=== PATIENT | female | born 2000 | race African-American/Black ===

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

== ENCOUNTER 2021-02-17 20:01 | Emergency (ER) | payer MEDICAID ==
[~2021-02-17] VITALS: Ht 175.3 cm; Wt 88.5 kg
[2021-02-17 22:00] VITALS: BP 122/51
[2021-02-17] MEDS ORDERED: KETOROLAC TROMETH 60MG/2ML VIAL IM ONE (22:45)
[2021-02-17] MEDS ORDERED: cefTRIAXone SOD 1,000 MG VL IM ONE (23:45)
== END 2021-02-18 00:43 | disposition home or self-care (01) ==
LOC: ER 20:01
DX: S91.209A Unspecified open wound of unspecified toe(s) with damage to nail, initial encounter (principal); S92.415A Nondisplaced fracture of proximal phalanx of left great toe, initial encounter for closed fracture; X58.XXXA Exposure to other specified factors, initial encounter; Y93.89 Activity, other specified; Y92.89 Other specified places as the place of occurrence of the external cause; Y99.8 Other external cause status
CPT/HCPCS: 11730; 73630; 81025; 96372; 99284; J0696; J1885

== ENCOUNTER 2021-12-30 10:05 | Observation (INO) | payer MEDICAID, OTHER ==
[~2021-12-30] VITALS: Ht 177.8 cm; Wt 72.6 kg
[2021-12-30 12:04] LABS: Alcohol, Urine < 3.0 mg/dL (0-10); Amphetamine Screen, Urine NEGATIVE (NEGATIVE); Barbiturate Scree,Urine NEGATIVE (NEGATIVE); Benzodiazephine Screen, Urine NEGATIVE (NEGATIVE); Cannabinoid Screen, Urine POSITIVE (NEGATIVE); Cocaine Screen, Urine NEGATIVE (NEGATIVE); Opiate Scree,Urine NEGATIVE (NEGATIVE); Phencyclidine Screen, Urine NEGATIVE (NEGATIVE)
== END 2021-12-30 11:06 | disposition home or self-care (01) ==
LOC: LDRP 10:05
PROVIDERS: ADMIT Obstetrics & Gynecology; ATTEND Obstetrics & Gynecology
DX: O26.892 Other specified pregnancy related conditions, second trimester (principal); Z20.822 Contact with and (suspected) exposure to COVID-19; R10.11 Right upper quadrant pain; Z3A.25 25 weeks gestation of pregnancy; Z79.899 Other long term (current) drug therapy
CPT/HCPCS: 36415; 59025; 80307; 81002; 87426; 94760; G0378

== ENCOUNTER 2022-01-17 10:13 | Observation (INO) | payer OTHER ==
[2022-01-17 11:31] LABS: Alcohol, Urine < 3.0 mg/dL (0-10); Amphetamine Screen, Urine NEGATIVE (NEGATIVE); Barbiturate Scree,Urine NEGATIVE (NEGATIVE); Benzodiazephine Screen, Urine NEGATIVE (NEGATIVE); Cannabinoid Screen, Urine POSITIVE (NEGATIVE); Cocaine Screen, Urine NEGATIVE (NEGATIVE); Opiate Scree,Urine NEGATIVE (NEGATIVE)
[2022-01-17 11:39] LABS: Phencyclidine Screen, Urine NEGATIVE (NEGATIVE)
[2022-01-17 11:44] LABS: Urine Bacteria FEW /hpf (None Seen); Urine Blood Negative /uL (Negative); Urine Mucus FEW (None Seen); Urine Specific Gravity 1.016 (1.001-1.035); Urine WBC 11 /hpf (0 - 5)
== END 2022-01-17 12:34 | disposition home or self-care (01) ==
LOC: LDRP 10:13
PROVIDERS: ADMIT Obstetrics & Gynecology; ATTEND Obstetrics & Gynecology
DX: O26.892 Other specified pregnancy related conditions, second trimester (principal); R10.9 Unspecified abdominal pain; M79.605 Pain in left leg; M79.604 Pain in right leg; M79.601 Pain in right arm; R51.9 Headache, unspecified; Z79.899 Other long term (current) drug therapy; Z3A.27 27 weeks gestation of pregnancy; Y04.8XXA Assault by other bodily force, initial encounter; Y93.89 Activity, other specified; Y92.89 Other specified places as the place of occurrence of the external cause; Y99.8 Other external cause status
CPT/HCPCS: 59025; 76805; 80307; 81001; 81002; G0378

== ENCOUNTER 2022-03-06 09:30 | Observation (INO) | payer MEDICAID, OTHER ==
[~2022-03-06] VITALS: Ht 177.8 cm; Wt 81.6 kg
[2022-03-06] MEDS ORDERED: FERR-7 PO (10:35)
[2022-03-06] MEDS ORDERED: PREN-96 PO (10:35)
[2022-03-06] MEDS ORDERED: NITR-87 PO (11:35)
[2022-03-06] MEDS ORDERED: ACETAMINOPHEN 325 MG TAB PO ONE (11:45)
== END 2022-03-06 12:07 | disposition home or self-care (01) ==
LOC: LDRP 09:30
PROVIDERS: ADMIT Obstetrics & Gynecology; ATTEND Obstetrics & Gynecology
DX: O23.43 Unspecified infection of urinary tract in pregnancy, third trimester (principal); O26.893 Other specified pregnancy related conditions, third trimester; R10.9 Unspecified abdominal pain; O21.2 Late vomiting of pregnancy; O99.323 Drug use complicating pregnancy, third trimester; F12.90 Cannabis use, unspecified, uncomplicated; Z3A.34 34 weeks gestation of pregnancy
CPT/HCPCS: 59025; 81002; 94760; G0378

== ENCOUNTER → 2022-03-14 | Outpatient (CLI) | payer MEDICAID ==
[~2022-03-14] MED LIST: FERR-7 PO; NITR-87 PO; PREN-96 PO
[2022-03-14 10:46] LABS: Basophils # (auto) 0.1 10 ^3/uL (0-0.2); Basophils % (auto) 1.9 % (0.0-2.0); Eosinophils # (auto) 0 10 ^3/uL (0-0.8); Eosinophils % (auto) 0.2 % (0.0-7.0); Hematocrit 34.1 % (36.0-46.0); Hemoglobin 11.4 g/dL (12.2-16.2); Lymphocytes # (auto) 1.3 10 ^3/uL (0.4-5.4); Lymphocytes % (auto) 20.9 % (10.0-50.0); Mean Corpuscular Hemoglobin 28.3 pg (28.0-32.0); Mean Corpuscular Hgb Conc. 33.5 g/dL (32.0-36.0); Mean Corpuscular Volume 84.5 fL (80.0-100.0); Monocytes # (auto) 0.5 10 ^3/uL (0-1.3); Monocytes % (auto) 7.3 % (0.0-12.0); Neutrophils # (auto) 4.4 10 ^3/uL (1.6-8.6); Neutrophils % (auto) 69.7 % (37.0-80.0); Nucleated Red Blood Cells % 0.1 %; Red Blood Cells 4.03 10^6/uL (4.0-5.20); Red Cell Distribution Width 21.2 % (11.8-14.3); White Blood Cell 6.4 10^3/uL (4.4-10.8)
[2022-03-14 11:11] LABS: Alcohol, Urine < 3.0 mg/dL (0-10); Amphetamine Screen, Urine NEGATIVE (NEGATIVE); Barbiturate Scree,Urine NEGATIVE (NEGATIVE); Benzodiazephine Screen, Urine NEGATIVE (NEGATIVE); Cocaine Screen, Urine NEGATIVE (NEGATIVE); Opiate Scree,Urine NEGATIVE (NEGATIVE); Phencyclidine Screen, Urine NEGATIVE (NEGATIVE)
[2022-03-14 11:18] LABS: Cannabinoid Screen, Urine POSITIVE (NEGATIVE)
[2022-03-15 08:06] LABS: RPR Non Reactive (Non Reactive)
== END | disposition home or self-care (01) ==
LOC: LAB 10:16
PROVIDERS: ATTEND Obstetrics & Gynecology
DX: Z34.80 Encounter for supervision of other normal pregnancy, unspecified trimester (principal); Z11.3 Encounter for screening for infections with a predominantly sexual mode of transmission; Z31.430 Encounter of female for testing for genetic disease carrier status for procreative management
CPT/HCPCS: 36415; 80307; 83036; 84112; 85025; 86592; 86703; 86705; 86765; 86900; 86901; 87086

== ENCOUNTER 2022-03-28 10:35 | Observation (INO) | payer MEDICAID | END 2022-03-28 11:46 | disposition home or self-care (01) | LOC: LDRP 10:35 | PROVIDERS: ADMIT Obstetrics & Gynecology; ATTEND Obstetrics & Gynecology | DX: O36.5930 Maternal care for other known or suspected poor fetal growth, third trimester, not applicable or unspecified (principal); O26.893 Other specified pregnancy related conditions, third trimester; R10.2 Pelvic and perineal pain; R10.30 Lower abdominal pain, unspecified; Z3A.37 37 weeks gestation of pregnancy | CPT/HCPCS: 59025; 81002; 94760; G0378 ==

== ENCOUNTER 2022-03-31 10:07 | Observation (INO) | payer MEDICAID | END 2022-03-31 11:38 | disposition home or self-care (01) | LOC: LDRP 10:07 | PROVIDERS: ADMIT Obstetrics & Gynecology; ATTEND Obstetrics & Gynecology | DX: O36.5930 Maternal care for other known or suspected poor fetal growth, third trimester, not applicable or unspecified (principal); Z3A.38 38 weeks gestation of pregnancy | CPT/HCPCS: 59025; 76818; 81002; 94760; G0378 ==

== ENCOUNTER 2022-04-04 12:49 | Observation (INO) | payer MEDICAID ==
[~2022-04-04 12:49] MED LIST changes: -NITR-87 PO
[2022-04-05 08:06] LABS: Rubella Antibodies, IgG 1.23 index (Immune >0.99)
== END 2022-04-04 14:30 | disposition home or self-care (01) ==
LOC: LDRP 12:49 → UNDOADMOB 12:49 → LDRP 13:19
PROVIDERS: ADMIT Obstetrics & Gynecology; ATTEND Obstetrics & Gynecology
DX: O36.5930 Maternal care for other known or suspected poor fetal growth, third trimester, not applicable or unspecified (principal); O62.9 Abnormality of forces of labor, unspecified; O34.63 Maternal care for abnormality of vagina, third trimester; N89.8 Other specified noninflammatory disorders of vagina; O99.323 Drug use complicating pregnancy, third trimester; F12.90 Cannabis use, unspecified, uncomplicated; Z3A.38 38 weeks gestation of pregnancy
CPT/HCPCS: 36415; 76818; 86762; 87340; G0378; 59025; 94760

== ENCOUNTER 2022-04-10 09:03 | Observation (INO) | payer MEDICAID | END 2022-04-10 11:15 | disposition home or self-care (01) | LOC: UNDOADMOB 09:03 → LDRP 09:03 → UNDODISOB 11:15 | PROVIDERS: ADMIT Obstetrics & Gynecology; ATTEND Obstetrics & Gynecology | DX: O36.5930 Maternal care for other known or suspected poor fetal growth, third trimester, not applicable or unspecified (principal); O62.9 Abnormality of forces of labor, unspecified; Z3A.39 39 weeks gestation of pregnancy | CPT/HCPCS: 59025; 76818; 81002; G0378 ==

== ENCOUNTER 2022-04-14 07:50 | Observation (INO) | payer MEDICAID | END 2022-04-14 10:13 | disposition home or self-care (01) | LOC: LDRP 07:50 | PROVIDERS: ADMIT Obstetrics & Gynecology; ATTEND Obstetrics & Gynecology | DX: O48.0 Post-term pregnancy (principal); O36.5930 Maternal care for other known or suspected poor fetal growth, third trimester, not applicable or unspecified; O26.893 Other specified pregnancy related conditions, third trimester; R10.9 Unspecified abdominal pain; Z3A.40 40 weeks gestation of pregnancy | CPT/HCPCS: 59025; 76818; 81002; 94760; G0378 ==

== ENCOUNTER 2022-04-14 20:09 | Inpatient (IN) | payer MEDICAID ==
[~2022-04-14] VITALS: Ht 177.8 cm; Wt 910.8 kg
[2022-04-14] MEDS ORDERED: PROMETHAZINE HCL 25 MG/ML 1ML IV PRN (20:30)
[2022-04-14] MEDS ORDERED: LIDOCAINE 2%HCL (LOCAL ANESTH.) INJ 10ml MDV IJ PRN (20:30)
[2022-04-14] MEDS ORDERED: BUTORPHANOL TARTRATE 2 MG/1 ML VIAL IV PRN ×2 (20:30)
[2022-04-14 21:04] LABS: Basophils # (auto) 0 10 ^3/uL (0-0.2); Basophils % (auto) 0.3 % (0.0-2.0); Eosinophils # (auto) 0 10 ^3/uL (0-0.8); Eosinophils % (auto) 0.2 % (0.0-7.0); Hematocrit 34.5 % (36.0-46.0); Hemoglobin 11.7 g/dL (12.2-16.2); Lymphocytes # (auto) 1.6 10 ^3/uL (0.4-5.4); Lymphocytes % (auto) 19.5 % (10.0-50.0); Mean Corpuscular Hemoglobin 29.6 pg (28.0-32.0); Mean Corpuscular Hgb Conc. 33.9 g/dL (32.0-36.0); Mean Corpuscular Volume 87.3 fL (80.0-100.0); Monocytes # (auto) 0.6 10 ^3/uL (0-1.3); Monocytes % (auto) 7.2 % (0.0-12.0); Neutrophils # (auto) 5.8 10 ^3/uL (1.6-8.6); Neutrophils % (auto) 72.8 % (37.0-80.0); Nucleated Red Blood Cells % 0.2 %; Red Blood Cells 3.96 10^6/uL (4.0-5.20)
[2022-04-14 21:06] LABS: Red Cell Distribution Width 20.5 % (11.8-14.3)
[2022-04-14 21:16] LABS: Albumin 2.4 g/dL (3.4-5.0); Calcium 8.4 mg/dL (8.5-10.1); Potassium 3.6 mmol/L (3.5-5.1)
[2022-04-14] MEDS: DERMOPLAST 60ML BOTTLE TOP PRN (21:16)
[2022-04-14] MEDS: WITCH HAZEL-GLYCERIN PAD TOP PRN (21:16)
[2022-04-14] MEDS: PHISODERM TOP SOLN 240ML BTL TOP PRN (21:16)
[2022-04-14 21:18] LABS: INR 0.94 (0.9-1.15); Partial Thromboplastin Time 25.6 sec (23.6-33.0)
[2022-04-14] MEDS: LACTATED RINGER'S 1,000 ML IV SCH (21:18)
[2022-04-14 21:19] LABS: BUN/Creatinine Ratio 9.4; Bilirubin, Total 0.2 mg/dL (0.2-1.0); Total Protein 6.5 g/dL (6.4-8.2)
[2022-04-14 21:31] LABS: Urine Bacteria FEW /hpf (None Seen); Urine Blood Negative /uL (Negative); Urine Mucus FEW (None Seen); Urine Specific Gravity 1.025 (1.001-1.035); Urine WBC 51 /hpf (0 - 5)
[2022-04-14] MEDS: miSOPROStol 50 MCG per PRE-CUT 1/2 TAB PO PRN (21:42)
[2022-04-14 21:50] LABS: Amphetamine Screen, Urine NEGATIVE (NEGATIVE); Cannabinoid Screen, Urine POSITIVE (NEGATIVE)
[2022-04-14 21:54] LABS: Alcohol, Urine < 3.0 mg/dL (0-10); Barbiturate Scree,Urine NEGATIVE (NEGATIVE); Benzodiazephine Screen, Urine NEGATIVE (NEGATIVE); Cocaine Screen, Urine NEGATIVE (NEGATIVE); Opiate Scree,Urine NEGATIVE (NEGATIVE); Phencyclidine Screen, Urine NEGATIVE (NEGATIVE)
[2022-04-15] MEDS: miSOPROStol 50 MCG per PRE-CUT 1/2 TAB PO PRN (01:58)
[2022-04-15] MEDS ORDERED: TERBUTALINE SULFATE 1 MG/ML 1ML VIAL SC PRN (06:15)
[2022-04-15] MEDS ORDERED: LACT. RINGERS/OXYTOCIN 20UNITS 1,000 ML IV SCH (06:15)
[2022-04-15] MEDS ORDERED: LACT. RINGERS/OXYTOCIN 20UNITS 500 ML IV ONE ×2 (06:15→06:45)
[2022-04-15] MEDS: LACTATED RINGER'S 1,000 ML IV SCH ×2 (06:16→10:33)
[2022-04-15] MEDS ORDERED: PROMETHAZINE HCL 25 MG/ML 1ML IV ONE (09:00)
[2022-04-15] MEDS ORDERED: ePHEDrine SULFATE 50 MG/ML AMP IV ONE (13:00)
[2022-04-15] MEDS ORDERED: NALOXONE HCL 0.4 MG/ML VIAL IV ONE (13:00)
[2022-04-15] MEDS ORDERED: ROPIVACAINE HCL 200 ML EPI SCH (13:00)
[2022-04-15] MEDS ORDERED: fentaNYL CITRATE 100 MCG/2 ML VL IV ONE (13:00)
[2022-04-15] MEDS ORDERED: LACTATED RINGER'S 1,000 ML IV ONE (13:00)
[2022-04-15] MEDS ORDERED: ONDANSETRON HCL 4 MG/2 ML VIAL IV PRN (13:30)
[2022-04-15] MEDS ORDERED: ONDANSETRON ODT 4 MG TAB PO PRN (17:45)
[2022-04-15] MEDS ORDERED: DOCUSATE SOD 100 MG CAP PO PRN (17:45)
[2022-04-15] MEDS: IBUPROFEN 800 MG TAB PO SCH ×2 (18:00→22:26)
[2022-04-15 18:53] VITALS: BP 140/78
[2022-04-15] MEDS ORDERED: TETANUS-DIPTH-ACEL PERTUSSIS 0.5ML SYR Tdap IM ONE (21:45)
[2022-04-15 23:00] VITALS: BP 121/54
[2022-04-16] MEDS: ACETAMINOPHEN 325 MG TAB PO PRN ×2 (00:05→23:39)
[2022-04-16 03:00] VITALS: BP 113/70
[2022-04-16] MEDS: IBUPROFEN 800 MG TAB PO SCH ×3 (05:16→19:11)
[2022-04-16] MEDS ORDERED: IBUP800T26 PO (05:50)
[2022-04-16 06:30] VITALS: BP 104/61
[2022-04-16 11:30] VITALS: BP 114/68
[2022-04-16 15:00] VITALS: BP 113/69
[2022-04-16 19:30] VITALS: BP 119/67
[2022-04-16 23:00] VITALS: BP 103/73
[2022-04-17 03:00] VITALS: BP 120/71
[2022-04-17] MEDS: IBUPROFEN 800 MG TAB PO SCH ×2 (03:26)
[2022-04-17 07:15] VITALS: BP 110/58
[2022-04-17] MEDS: ACETAMINOPHEN 325 MG TAB PO PRN (07:51)
[2022-04-17] MEDS: DERMOPLAST 60ML BOTTLE TOP PRN (07:53)
[2022-04-17] MEDS: PHISODERM TOP SOLN 240ML BTL TOP PRN (07:53)
[2022-04-17] MEDS: WITCH HAZEL-GLYCERIN PAD TOP PRN (07:53)
== END 2022-04-17 10:36 | disposition home or self-care (01) | DRG 560 ==
LOC: LDRP 20:09
PROVIDERS: ADMIT Obstetrics & Gynecology; ATTEND Obstetrics & Gynecology
PROC: 3E0P7VZ Introduction of Hormone into Female Reproductive, Via Natural or Artificial Opening (ICD-10-PCS; 2022-04-14)
PROC: 3E0DXGC Introduction of Other Therapeutic Substance into Mouth and Pharynx, External Approach (ICD-10-PCS; 2022-04-14)
PROC: 10E0XZZ Delivery of Products of Conception, External Approach (ICD-10-PCS; principal; 2022-04-15)
PROC: 10907ZC Drainage of Amniotic Fluid, Therapeutic from Products of Conception, Via Natural or Artificial Opening (ICD-10-PCS; 2022-04-15)
PROC: 0W8NXZZ Division of Female Perineum, External Approach (ICD-10-PCS; 2022-04-15)
PROC: 0KQM0ZZ Repair Perineum Muscle, Open Approach (ICD-10-PCS; 2022-04-15)
PROC: 3E0R3BZ Introduction of Anesthetic Agent into Spinal Canal, Percutaneous Approach (ICD-10-PCS; 2022-04-15)
PROC: 00HU33Z Insertion of Infusion Device into Spinal Canal, Percutaneous Approach (ICD-10-PCS; 2022-04-15)
DX: O36.5930 Maternal care for other known or suspected poor fetal growth, third trimester, not applicable or unspecified (principal); Z37.0 Single live birth; O70.1 Second degree perineal laceration during delivery; Z20.822 Contact with and (suspected) exposure to COVID-19; Z3A.40 40 weeks gestation of pregnancy
CPT/HCPCS: 36415; 59025; 59409; 62282; 80053; 80307; 81001; 81002; 85025; 85610; 85730; 86592; 86850; 86900; 86901; 90715; 94760; 96361; 96365; 96366; 96374; 96375; G0378; J2001; J2590

== ENCOUNTER 2023-05-30 18:34 | Observation (INO) | payer MEDICAID ==
[~2023-05-30] VITALS: Ht 177.8 cm; Wt 99.8 kg
[~2023-05-30 18:34] MED LIST changes: -FERR-7 PO; +IBUP-1455 PO
[2023-05-30] MEDS ORDERED: NIFEdipine 10 MG CAP PO ONE (19:45)
[2023-05-30] MEDS ORDERED: TERBUTALINE SULFATE 1 MG/ML 1ML VIAL SC ONE (19:53)
[2023-05-30] MEDS: TERBUTALINE SULFATE 1 MG/ML 1ML VIAL SC SCH ×2 (19:54→20:15)
[2023-05-30 20:12] LABS: Basophils # (auto) 0 10 ^3/uL (0-0.2); Basophils % (auto) 0.4 % (0.0-2.0); Eosinophils # (auto) 0.1 10 ^3/uL (0-0.8); Eosinophils % (auto) 0.8 % (0.0-7.0); Hematocrit 29.4 % (36.0-46.0); Hemoglobin 9.6 g/dL (12.2-16.2); Lymphocytes # (auto) 1.8 10 ^3/uL (0.4-5.4); Lymphocytes % (auto) 19.7 % (10.0-50.0); Mean Corpuscular Hemoglobin 27.7 pg (28.0-32.0); Mean Corpuscular Hgb Conc. 32.5 g/dL (32.0-36.0); Mean Corpuscular Volume 85.2 fL (80.0-100.0); Monocytes # (auto) 0.7 10 ^3/uL (0-1.3); Monocytes % (auto) 7.4 % (0.0-12.0); Neutrophils # (auto) 6.5 10 ^3/uL (1.6-8.6); Neutrophils % (auto) 71.7 % (37.0-80.0); Nucleated Red Blood Cells % 0.1 %; Red Blood Cells 3.45 10^6/uL (4.0-5.20); Red Cell Distribution Width 15.4 % (11.8-14.3); White Blood Cell 9.1 10^3/uL (4.4-10.8)
[2023-05-30 20:28] LABS: INR 1.02 (0.9-1.15); Partial Thromboplastin Time 24.2 SEC (24.5-34.5); Prothrombin Time 10.7 sec (9.3-11.8)
[2023-05-30 20:36] LABS: Albumin 2.5 g/dL (3.4-5.0); Calcium 8.7 mg/dL (8.5-10.1); Potassium 3.1 mmol/L (3.5-5.1)
[2023-05-30 20:39] LABS: BUN/Creatinine Ratio 5.1 (10.0-20.0); Bilirubin, Total 0.3 mg/dL (0.2-1.0); Total Protein 6.3 g/dL (6.4-8.2)
[2023-05-30] MEDS ORDERED: NIFEdipine 10 MG CAP ONE (20:53)
[2023-05-30] MEDS ORDERED: FER325T PO (21:09)
[2023-05-30] MEDS ORDERED: PREN-96 PO (21:09)
[2023-05-30] MEDS ORDERED: ASCO1TAB27 PO (21:09)
[2023-05-30] MEDS ORDERED: DOCU-94 PO (21:09)
[2023-05-30] MEDS ORDERED: POTASSIUM CHL 20 Meq TABLET PO ONE (21:15)
[2023-05-31 01:01] LABS: Urine Bacteria MANY /hpf (None Seen); Urine Blood Negative /uL (Negative); Urine Clarity HAZY (Clear); Urine Color Yellow (Yellow); Urine Mucus FEW (None Seen); Urine Protein, UAD Negative (Negative); Urine Specific Gravity 1.013 (1.001-1.035); Urine Urobilinogen Normal (Negative); Urine WBC 11 /hpf (0 - 5)
[2023-05-31 01:35] LABS: Alcohol, Urine < 3.0 mg/dL (0-10); Amphetamine Screen, Urine NEGATIVE (NEGATIVE); Barbiturate Scree,Urine NEGATIVE (NEGATIVE); Benzodiazephine Screen, Urine NEGATIVE (NEGATIVE); Cannabinoid Screen, Urine POSITIVE (NEGATIVE); Cocaine Screen, Urine NEGATIVE (NEGATIVE)
[2023-05-31 01:43] LABS: Opiate Scree,Urine NEGATIVE (NEGATIVE); Phencyclidine Screen, Urine NEGATIVE (NEGATIVE)
[2023-05-31] MEDS ORDERED: NITR-87 PO (11:54)
[2023-06-03 03:06] LABS: Rubella Antibodies, IgG 1.37 index (Immune >0.99)
[2023-06-04 19:06] LABS: Treponema pallidum Ab (FTA-Ab) Non Reactive (Non Reactive)
== END 2023-05-30 21:48 | disposition home or self-care (01) ==
LOC: LDRP 18:34
PROVIDERS: ADMIT Obstetrics & Gynecology; ATTEND Obstetrics & Gynecology
DX: O9A.213 Injury, poisoning and certain other consequences of external causes complicating pregnancy, third trimester (principal); S39.91XA Unspecified injury of abdomen, initial encounter; O23.43 Unspecified infection of urinary tract in pregnancy, third trimester; O99.283 Endocrine, nutritional and metabolic diseases complicating pregnancy, third trimester; E87.6 Hypokalemia; Z3A.29 29 weeks gestation of pregnancy; Z79.899 Other long term (current) drug therapy; Y04.0XXA Assault by unarmed brawl or fight, initial encounter; Y93.89 Activity, other specified; Y92.89 Other specified places as the place of occurrence of the external cause; Y99.8 Other external cause status
CPT/HCPCS: 36415; 59025; 76805; 80053; 80307; 81001; 81002; 83036; 85025; 85610; 85730; 86592; 86703; 86762; 86850; 86900; 86901; 87086; 87340; 94760; 96372; G0378; J3105

== ENCOUNTER → 2023-06-02 | Outpatient (CLI) | payer MEDICAID ==
[~2023-06-02] MED LIST changes: +ASCO1TAB27 PO; +DOCU-94 PO; +FER325T PO; -IBUP-1455 PO; +NITR-87 PO
[2023-06-02 13:27] LABS: Amphetamine Screen, Urine NEGATIVE (NEGATIVE); Barbiturate Scree,Urine NEGATIVE (NEGATIVE); Benzodiazephine Screen, Urine NEGATIVE (NEGATIVE)
[2023-06-02 13:35] LABS: Cannabinoid Screen, Urine POSITIVE (NEGATIVE); Cocaine Screen, Urine NEGATIVE (NEGATIVE); Opiate Scree,Urine NEGATIVE (NEGATIVE); Phencyclidine Screen, Urine NEGATIVE (NEGATIVE)
[2023-06-04 12:06] LABS: QuantiFERON-TB Gold Plus Negative (Negative)
== END | disposition home or self-care (01) ==
LOC: LAB 12:31
PROVIDERS: ATTEND Obstetrics & Gynecology
DX: Z34.93 Encounter for supervision of normal pregnancy, unspecified, third trimester (principal)
CPT/HCPCS: 36415; 80307; 83036; 86703; 87086

== ENCOUNTER 2023-08-09 22:41 | Observation (INO) | payer MEDICAID ==
[~2023-08-09] VITALS: Ht 180.3 cm; Wt 99.3 kg
[2023-08-10 01:14] LABS: Basophils # (auto) 0 10 ^3/uL (0-0.2); Basophils % (auto) 0.5 % (0.0-2.0); Eosinophils # (auto) 0 10 ^3/uL (0-0.8); Eosinophils % (auto) 0.5 % (0.0-7.0); Hemoglobin 9.5 g/dL (12.2-16.2); Lymphocytes # (auto) 1.7 10 ^3/uL (0.4-5.4); Lymphocytes % (auto) 22.3 % (10.0-50.0); Mean Corpuscular Hemoglobin 28.1 pg (28.0-32.0); Mean Corpuscular Hgb Conc. 33.9 g/dL (32.0-36.0); Monocytes # (auto) 0.6 10 ^3/uL (0-1.3); Monocytes % (auto) 7.4 % (0.0-12.0); Neutrophils # (auto) 5.4 10 ^3/uL (1.6-8.6); Neutrophils % (auto) 69.3 % (37.0-80.0); Nucleated Red Blood Cells % 0.1 %; Red Blood Cells 3.38 10^6/uL (4.0-5.20); Red Cell Distribution Width 18.1 % (11.8-14.3); White Blood Cell 7.8 10^3/uL (4.4-10.8)
[2023-08-12 22:07] LABS: Chlamydia Trachomatis, NAA Negative (Negative); Neisseria gonorrhoeae, NAA Negative (Negative)
== END 2023-08-10 02:00 | disposition home or self-care (01) ==
LOC: LDRP 22:41
PROVIDERS: ADMIT Obstetrics & Gynecology; ATTEND Obstetrics & Gynecology
DX: O26.893 Other specified pregnancy related conditions, third trimester (principal); R10.9 Unspecified abdominal pain; O99.891 Other specified diseases and conditions complicating pregnancy; M54.9 Dorsalgia, unspecified; O99.323 Drug use complicating pregnancy, third trimester; F12.90 Cannabis use, unspecified, uncomplicated; O99.333 Smoking (tobacco) complicating pregnancy, third trimester; F17.200 Nicotine dependence, unspecified, uncomplicated; Z3A.39 39 weeks gestation of pregnancy
CPT/HCPCS: 36415; 59025; 81002; 85025; 86592; 87491; 87591; 94760; G0378

== ENCOUNTER 2023-08-11 06:00 | Inpatient (IN) | payer MEDICAID ==
[~2023-08-11] VITALS: Ht 180.3 cm; Wt 99.3 kg
[2023-08-11] MEDS ORDERED: PHISODERM TOP SOLN 240ML BTL TOP PRN (06:30)
[2023-08-11] MEDS ORDERED: PROMETHAZINE HCL 25 MG/ML 1ML IV PRN (06:30)
[2023-08-11] MEDS ORDERED: miSOPROStol 50 MCG per PRE-CUT 1/2 TAB PO PRN (06:30)
[2023-08-11] MEDS ORDERED: LIDOCAINE 2%HCL (LOCAL ANESTH.) INJ 20ML MDV IJ PRN (06:30)
[2023-08-11] MEDS: DERMOPLAST 60ML BOTTLE TOP PRN (06:52)
[2023-08-11] MEDS: WITCH HAZEL-GLYCERIN PAD TOP PRN (06:52)
[2023-08-11] MEDS: LACTATED RINGER'S 1,000 ML IV SCH ×2 (06:52→21:56)
[2023-08-11 07:04] LABS: Basophils # (auto) 0 10 ^3/uL (0-0.2); Basophils % (auto) 0.4 % (0.0-2.0); Eosinophils # (auto) 0.1 10 ^3/uL (0-0.8); Eosinophils % (auto) 1.1 % (0.0-7.0); Hematocrit 29.1 % (36.0-46.0); Hemoglobin 10.2 g/dL (12.2-16.2); Lymphocytes # (auto) 1.7 10 ^3/uL (0.4-5.4); Lymphocytes % (auto) 25.1 % (10.0-50.0); Mean Corpuscular Hemoglobin 29.1 pg (28.0-32.0); Mean Corpuscular Hgb Conc. 34.9 g/dL (32.0-36.0); Mean Corpuscular Volume 83.2 fL (80.0-100.0); Monocytes # (auto) 0.4 10 ^3/uL (0-1.3); Monocytes % (auto) 6.6 % (0.0-12.0); Neutrophils # (auto) 4.5 10 ^3/uL (1.6-8.6); Neutrophils % (auto) 66.8 % (37.0-80.0); Red Cell Distribution Width 18.4 % (11.8-14.3); White Blood Cell 6.7 10^3/uL (4.4-10.8)
[2023-08-11 07:19] LABS: INR 0.98 (0.9-1.15); Partial Thromboplastin Time 26.5 SEC (24.5-34.5); Prothrombin Time 10.3 sec (9.3-11.8)
[2023-08-11 07:22] LABS: Urine Bacteria FEW /hpf (None Seen); Urine Blood Negative /uL (Negative); Urine Clarity Clear (Clear); Urine Color Yellow (Yellow); Urine Mucus FEW (None Seen); Urine Protein, UAD TRACE (Negative); Urine Urobilinogen Normal (Negative); Urine WBC 23 /hpf (0 - 5)
[2023-08-11 07:32] LABS: Alanine Aminotransferase 21 U/L (7-40); Albumin 3.4 g/dL (3.2-4.8); Alkaline Phosphatase 215 U/L (46-116); Anion Gap 8 (5-15); Aspartate Aminotransferase 26 U/L (13-40); Bilirubin, Total 0.6 mg/dL (0.2-1.0); Calcium 8.3 mg/dL (8.7-10.4); Carbon Dioxide 20 mmol/L (20-30); Chloride 110 mmol/L (98-107); Glucose 85 mg/dL (74-106); Potassium 3.3 mmol/L (3.5-5.1); Sodium 138 mmol/L (136-145); Total Protein 5.9 g/dL (5.7-8.2)
[2023-08-11 07:34] LABS: BUN/Creatinine Ratio 11.6 (10.0-20.0); Blood Urea Nitrogen < 5 mg/dL (9-23)
[2023-08-11 07:54] LABS: Amphetamine Screen, Urine Neg (NEGATIVE); Barbiturate Scree,Urine Neg (NEGATIVE); Benzodiazephine Screen, Urine Neg (NEGATIVE); Cocaine Screen, Urine Neg (NEGATIVE); Opiate Scree,Urine Neg (NEGATIVE); Phencyclidine Screen, Urine Neg (NEGATIVE)
[2023-08-11 07:55] LABS: Cannabinoid Screen, Urine Pos (NEGATIVE)
[2023-08-11] MEDS ORDERED: LACT. RINGERS/OXYTOCIN 20UNITS 1,000 ML IV SCH (11:45)
[2023-08-11] MEDS ORDERED: LACT. RINGERS/OXYTOCIN 20UNITS 500 ML IV ONE ×2 (11:45→12:15)
[2023-08-11] MEDS ORDERED: TERBUTALINE SULFATE 1 MG/ML 1ML VIAL SC PRN (11:45)
[2023-08-11] MEDS ORDERED: PENICILLIN G POT 5MIL/D5 50ML 50 ML IV ONE (12:45)
[2023-08-11] MEDS ORDERED: NALOXONE HCL 0.4 MG/ML VIAL IV ONE (16:00)
[2023-08-11] MEDS ORDERED: LACTATED RINGER'S 1,000 ML IV ONE (16:00)
[2023-08-11] MEDS ORDERED: ROPIVACAINE HCL 200 ML EPI SCH ×2 (16:00→16:15)
[2023-08-11] MEDS ORDERED: ePHEDrine SULFATE 50 MG/ML AMP IV ONE (16:00)
[2023-08-11] MEDS ORDERED: PENICILLIN G POTASSIUM 2,500,000 UNITS in D5W 5% 50 ML IV SCH (16:45)
[2023-08-11] MEDS ORDERED: METHYLERGONOVINE MALEATE 0.2 MG/ML AMP IM ONE (23:04)
[2023-08-11] MEDS ORDERED: miSOPROStol 100 mcg TAB ONE (23:16)
[2023-08-12] VITALS (8 sets, daily range): BP systolic 98–106; BP diastolic 57–77; PULSE 64–78; RESP 16–20; TEMP 98–100.5; O2SAT 98–99
[2023-08-12] MEDS ORDERED: LACT. RINGERS/OXYTOCIN 20UNITS 1,000 ML IV SCH
[2023-08-12] MEDS ORDERED: IBUPROFEN 600 MG TAB PO PRN (00:30)
[2023-08-12] MEDS ORDERED: ONDANSETRON ODT 4 MG TAB PO PRN (00:30)
[2023-08-12] MEDS ORDERED: METHYLERGONOVINE MALEATE 0.2 MG/ML AMP IM ONE (00:30)
[2023-08-12] MEDS ORDERED: PROMETHAZINE HCL 25 MG/ML 1ML IV ONE (00:30)
[2023-08-12] MEDS ORDERED: miSOPROStol 100 mcg TAB PR STA (00:50)
[2023-08-12] MEDS ORDERED: POTASSIUM CHL 20 Meq TABLET PO ONE ×2 (01:00→08:45)
[2023-08-12] MEDS: ACETAMINOPHEN 325 MG TAB PO PRN ×2 (01:07→05:29)
[2023-08-12] MEDS: LACTATED RINGER'S 1,000 ML IV SCH (05:39)
[2023-08-12] MEDS: PIPERACILLIN-TAZOB 3.375GM 100 ML IV SCH ×2 (06:56→15:31)
[2023-08-12] MEDS: IBUPROFEN 800 MG TAB PO PRN ×2 (07:11→20:19)
[2023-08-12 07:34] LABS: Basophils # (auto) 0 10 ^3/uL (0-0.2); Basophils % (auto) 0.2 % (0.0-2.0); Eosinophils # (auto) 0 10 ^3/uL (0-0.8); Hematocrit 24.4 % (36.0-46.0); Hemoglobin 7.9 g/dL (12.2-16.2); Lymphocytes # (auto) 1.2 10 ^3/uL (0.4-5.4); Lymphocytes % (auto) 10.4 % (10.0-50.0); Mean Corpuscular Hgb Conc. 32.5 g/dL (32.0-36.0); Mean Corpuscular Volume 83.3 fL (80.0-100.0); Monocytes # (auto) 0.7 10 ^3/uL (0-1.3); Monocytes % (auto) 6.6 % (0.0-12.0); Neutrophils # (auto) 9.3 10 ^3/uL (1.6-8.6); Neutrophils % (auto) 82.8 % (37.0-80.0); Red Blood Cells 2.93 10^6/uL (4.0-5.20); Red Cell Distribution Width 17.9 % (11.8-14.3); White Blood Cell 11.2 10^3/uL (4.4-10.8)
[2023-08-12] MEDS ORDERED: ACET-1882 PO (08:40)
[2023-08-12] MEDS ORDERED: IBUP-1455 PO (08:40)
[2023-08-12] MEDS ORDERED: DOCU-94 PO (08:40)
[2023-08-12] MEDS ORDERED: FERR30CA PO (08:40)
[2023-08-12] MEDS: HYDROcodone-ACET 5/325MG TAB PO PRN ×2 (10:16→17:55)
[2023-08-12] MEDS: SODIUM FERR GLUC 62.5MG/5ML 125 MG in SODIUM CHL 0.9% 100 ML IV SCH (10:42)
[2023-08-12] MEDS ORDERED: cefOXitin 2GM/100ML 100 ML IV SCH (12:00)
[2023-08-12] MEDS ORDERED: DOCUSATE SOD 100 MG CAP PO SCH (22:00)
[2023-08-13] MEDS: HYDROcodone-ACET 5/325MG TAB PO PRN ×3 (00:06→15:13)
[2023-08-13] MEDS: PIPERACILLIN-TAZOB 3.375GM 100 ML IV SCH ×2 (02:07→06:00)
[2023-08-13 02:37] VITALS: BP 103/57; PULSE 72; RESP 16; TEMP 98.2; O2SAT 98
[2023-08-13] MEDS: IBUPROFEN 800 MG TAB PO PRN ×2 (04:43→18:31)
[2023-08-13 07:00] VITALS: BP 100/53; PULSE 59; RESP 18; RESP 20; TEMP 98.2
[2023-08-13 07:42] LABS: Alanine Aminotransferase 12 U/L (7-40); Albumin 2.9 g/dL (3.2-4.8); Alkaline Phosphatase 150 U/L (46-116); Anion Gap 5 (5-15); Aspartate Aminotransferase 13 U/L (13-40); Calcium 8.1 mg/dL (8.7-10.4); Carbon Dioxide 24 mmol/L (20-30); Chloride 109 mmol/L (98-107); Potassium 3.5 mmol/L (3.5-5.1); Sodium 138 mmol/L (136-145)
[2023-08-13 07:43] LABS: BUN/Creatinine Ratio 9.8 (10.0-20.0); Bilirubin, Total 0.5 mg/dL (0.2-1.0); Blood Urea Nitrogen < 5 mg/dL (9-23)
[2023-08-13 07:54] LABS: Glucose 79 mg/dL (74-106)
[2023-08-13] MEDS: SODIUM FERR GLUC 62.5MG/5ML 125 MG in SODIUM CHL 0.9% 100 ML IV SCH (11:04)
[2023-08-13 11:15] VITALS: BP 115/69; PULSE 99; RESP 18; TEMP 99.5
[2023-08-13 11:30] VITALS: BP 115/69; PULSE 91; RESP 18; TEMP 99.3
[2023-08-13] MEDS: DERMOPLAST 60ML BOTTLE TOP PRN (14:33)
[2023-08-13] MEDS: WITCH HAZEL-GLYCERIN PAD TOP PRN (14:33)
[2023-08-13 15:00] VITALS: BP 102/66; PULSE 66; RESP 16; TEMP 98
[2023-08-13 18:55] VITALS: BP 114/72; PULSE 59; PULSE 69; RESP 16; TEMP 97.7
[2023-08-14 20:06] LABS: Treponema pallidum Ab (FTA-Ab) Non Reactive (Non Reactive)
== END 2023-08-13 20:50 | disposition home or self-care (01) | DRG 560 ==
LOC: UNDOADMIN 06:00 → LDRP 06:00
PROVIDERS: ADMIT Obstetrics & Gynecology; ATTEND Obstetrics & Gynecology
PROC: 10E0XZZ Delivery of Products of Conception, External Approach (ICD-10-PCS; principal; 2023-08-11)
PROC: 3E0R3BZ Introduction of Anesthetic Agent into Spinal Canal, Percutaneous Approach (ICD-10-PCS; 2023-08-11)
PROC: 00HU33Z Insertion of Infusion Device into Spinal Canal, Percutaneous Approach (ICD-10-PCS; 2023-08-11)
PROC: 0W8NXZZ Division of Female Perineum, External Approach (ICD-10-PCS; 2023-08-11)
DX: O90.81 Anemia of the puerperium (principal); Z37.0 Single live birth; O86.4 Pyrexia of unknown origin following delivery; D64.9 Anemia, unspecified; Z3A.39 39 weeks gestation of pregnancy
CPT/HCPCS: 36415; 59025; 59409; 62282; 76818; 80053; 80307; 81001; 81002; 85025; 85610; 85730; 86592; 86850; 86900; 86901; 94760; 96360; 96361; 96365; 96366; 96372; 96374; G0378; J0694; J2540; J2543; J2590; J7060